=== PATIENT | male | born 2000 | race Caucasian/White ===

== ENCOUNTER 2020-08-01 17:30 | Emergency (ER) | payer OTHER ==
[~2020-08-01] VITALS: Ht 175.3 cm; Wt 75.0 kg
--- NOTE | 2020-08-01 18:09 | NUR ---
BIB BY [facility] FOR [facility]. HX OF DEPRESSION/ANXIETY. HX OF CUTTING. "I'M FEELING SUPER UNSTABLE. I WAS PRATIK TAKE A BUNCH OF MY MOME XANAX AND OXYS THEN DRINK." ALL BELONGING INVENTORIED AND SECURED IN LOCKER ROOM SECURED WITH PSYCHIATRIC PRECAUTIONS UDS OBTAINED UPDATED ON ESTIMATED POC
[2020-08-01 18:17] LABS: BASOPHILS % (AUTO) 1 % (0-1); EOSINOPHILS % (AUTO) 0 % (1-7); LYMPHOCYTES % (AUTO) 22 % (22-44); MEAN CORPUSCULAR HEMOGLOBIN 31.5 pg (27.5-34.5); MEAN CORPUSCULAR HGB CONC 34.1 g/dL (33.2-36.2); MEAN PLATELET VOLUME 8.6 fL (7.4-10.4); MONOCYTES % (AUTO) 8 % (2-9); NEUTROPHILS % (AUTO) 69 % (42-75); PLATELET COUNT 241 x10^3/uL (130-400); RED BLOOD COUNT 5.42 x10^6/uL (4.38-5.82); RED CELL DISTRIBUTION WIDTH 13.3 % (9.4-14.8)
[2020-08-01 18:24] LABS: ALBUMIN 4.5 g/dL (3.4-5.0); ANION GAP 6 mmol/L (5-15); CHLORIDE 109 mmol/L (98-107)
[2020-08-01 18:28] LABS: AMPHETAMINE SCREEN, URINE Negative (Negative); BARBITURATE SCREEN, URINE Negative (Negative); BENZODIAZEPINE SCREEN, URINE Negative (Negative); CANNABINOID SCREEN, URINE Negative (Negative); COCAINE SCREEN, URINE Negative (Negative); METHADONE SCREEN, URINE Negative (Negative); OPIATE SCREEN, URINE Negative (Negative)
[2020-08-01 18:28] LABS: ALANINE AMINOTRANSFERASE 38 U/L (12-78); ALKALINE PHOSPHATASE 94 U/L (45-117); BILIRUBIN,TOTAL 0.5 mg/dL (0.2-1.0); CREATININE 1.03 mg/dL (0.7-1.3); TOTAL PROTEIN 8.2 g/dL (6.4-8.2)
[2020-08-01 18:29] LABS: SALICYLATE LEVEL < 1.7 mg/dL (2.8-20.0)
[2020-08-01] MEDS ORDERED: NICOTINE 7 MG/24 HR PATCH.TD24 TD SCH (19:00)
[2020-08-01] MEDS ORDERED: NICOTINE 7 MG/24 HR PATCH.TD24 ONE ×2 (19:03→19:30)
--- NOTE | 2020-08-01 19:34 | NUR ---
MEDICATED PER EMAR FOR NICOTINE DEPENDENCE UPDATED ON ESTIMATED POC (HOPEFULLY WILL BE TRANSFERRED TO [facility] SHORTLY)
--- NOTE | 2020-08-01 19:51 | NUR ---
REPORT FROMERICAY ASSUMED CARE OF PT AT THIS TIME
--- NOTE | 2020-08-01 19:55 | NUR ---
KEREN RN: Spoke with ABE Peralta. Patient to be eval by [facility].
--- NOTE | 2020-08-01 19:57 | NUR ---
REPORT TO RAFA FISH
[2020-08-01 20:23] VITALS: BP 122/72
--- NOTE | 2020-08-01 20:46 | NUR ---
TP RN: Accessed patient's belongings with patient in order to get the correct insurance info. Contacted Kathryn at [facility] to inform her of the active insurance. Provided crackers and water to patient.
--- NOTE | 2020-08-01 21:49 | NUR ---
YESIKA ([facility]AVA) ACCEPTED
== END 2020-08-01 23:29 ==
LOC: ED 18:00 → UNDOADMIN 23:05 → EDIP 23:05 → ED 23:29
DX: F33.9 Major depressive disorder, recurrent, unspecified (principal); Z20.822 Contact with and (suspected) exposure to COVID-19
CPT/HCPCS: 36415; 80053; 80299; 80307; 80320; 80329; 85025; 87635; G0480

== ENCOUNTER 2020-08-01 22:10 | Inpatient (IN) | payer OTHER ==
[~2020-08-01] VITALS: Ht 165.1 cm; Wt 75.3 kg
[2020-08-01] MEDS ORDERED: DOCUSATE 100 MG CAPSULE PO PRN (23:00)
[2020-08-01] MEDS ORDERED: POLYETHYLENE GLYCOL 17 GM PACKET PO PRN (23:00)
[2020-08-01] MEDS ORDERED: ONDANSETRON ODT 4 MG PO PRN (23:00)
[2020-08-01] MEDS ORDERED: ACETAMINOPHEN 325 MG TABLET PO PRN (23:00)
[2020-08-01] MEDS ORDERED: BISACODYL 10 MG SUPP PR PRN (23:00)
[2020-08-01 23:08] LABS: MICROSCOPIC NOT IND
[2020-08-01 23:32] LABS: FREE T4 (FREE THYROXINE) 1.18 ng/dL (0.76-1.46)
[2020-08-01] MEDS ORDERED: PLEASE ENTER HEIGHT AND WEIGHT MC SCH (23:45)
[2020-08-02] VITALS: BP 145/92
[2020-08-02 01:19] LABS: CHOL/HDL RATIO 2.5; LDL/HDL RATIO 1.3 (0.5-3.0)
[2020-08-02 07:19] VITALS: BP 109/66
[2020-08-02] MEDS: NICOTINE 14MG/24 HR PATCH.TD24 TD SCH (07:57)
[2020-08-02] MEDS: VENLAFAXINE XR 37.5MG CAP.ER.24H PO SCH (15:14)
[2020-08-02 19:45] VITALS: BP 121/76
[2020-08-02] MEDS ORDERED: CARIPRAZINE 1.5 MG CAP PO SCH (21:00)
[2020-08-03 07:31] VITALS: BP 104/61
[2020-08-03] MEDS: NICOTINE 14MG/24 HR PATCH.TD24 TD SCH (08:32)
[2020-08-03] MEDS: VENLAFAXINE XR 37.5MG CAP.ER.24H PO SCH (08:32)
[2020-08-03 19:19] VITALS: BP 104/61
[2020-08-03] MEDS: MELATONIN 3 MG TABLET PO PRN (23:01)
[2020-08-04 07:36] VITALS: BP 100/64
[2020-08-04] MEDS: VENLAFAXINE XR 37.5MG CAP.ER.24H PO SCH (08:32)
[2020-08-04] MEDS: NICOTINE 14MG/24 HR PATCH.TD24 TD SCH (08:37)
[2020-08-04] MEDS: CARIPRAZINE 1.5 MG CAP PO SCH (17:11)
[2020-08-04 19:14] VITALS: BP 131/70
[2020-08-04] MEDS: MELATONIN 3 MG TABLET PO PRN (20:42)
[2020-08-05 07:20] VITALS: BP 103/56
[2020-08-05] MEDS: CARIPRAZINE 1.5 MG CAP PO SCH (08:35)
[2020-08-05] MEDS: VENLAFAXINE XR 37.5MG CAP.ER.24H PO SCH (08:35)
[2020-08-05] MEDS: NICOTINE 14MG/24 HR PATCH.TD24 TD SCH (08:36)
[2020-08-05 19:18] VITALS: BP 122/72
[2020-08-06 07:29] VITALS: BP 116/63
[2020-08-06] MEDS: CARIPRAZINE 1.5 MG CAP PO SCH (09:00)
[2020-08-06] MEDS: VENLAFAXINE XR 37.5MG CAP.ER.24H PO SCH (09:08)
[2020-08-06] MEDS: NICOTINE 14MG/24 HR PATCH.TD24 TD SCH (09:08)
[2020-08-06 19:15] VITALS: BP 128/73
[2020-08-07 07:41] VITALS: BP 113/69
[2020-08-07] MEDS: VENLAFAXINE XR 37.5MG CAP.ER.24H PO SCH (08:39)
[2020-08-07] MEDS: NICOTINE 14MG/24 HR PATCH.TD24 TD SCH (08:40)
[2020-08-07] MEDS: CARIPRAZINE 1.5 MG CAP PO SCH (08:43)
[2020-08-07 19:24] VITALS: BP 130/83
[2020-08-07] MEDS: MELATONIN 3 MG TABLET PO PRN (22:19)
[2020-08-08 07:20] VITALS: BP 112/71
[2020-08-08] MEDS: VENLAFAXINE XR 37.5MG CAP.ER.24H PO SCH (08:18)
[2020-08-08] MEDS: NICOTINE 14MG/24 HR PATCH.TD24 TD SCH (08:18)
[2020-08-08] MEDS: CARIPRAZINE 1.5 MG CAP PO SCH (08:20)
[2020-08-08] MEDS ORDERED: NICO-486 TD (14:49)
[2020-08-08] MEDS ORDERED: VENL37.52 PO (14:49)
[2020-08-08] MEDS ORDERED: CARI1.5C2 PO (14:49)
[2020-08-08] MEDS ORDERED: MELA3TAB31 PO (14:49)
== END 2020-08-08 15:01 | disposition home or self-care (01) | DRG 885 ==
LOC: 3E 23:27
PROVIDERS: ADMIT Psychiatry & Neurology Psychosomatic Medicine; ATTEND Psychiatry & Neurology Psychosomatic Medicine
DX: F33.3 Major depressive disorder, recurrent, severe with psychotic symptoms (principal); R45.851 Suicidal ideations; F16.10 Hallucinogen abuse, uncomplicated; J45.909 Unspecified asthma, uncomplicated; F17.290 Nicotine dependence, other tobacco product, uncomplicated; Z60.2 Problems related to living alone; K59.00 Constipation, unspecified; Z81.8 Family history of other mental and behavioral disorders; Z82.49 Family history of ischemic heart disease and other diseases of the circulatory system; Z91.5 Personal history of self-harm; Z80.42 Family history of malignant neoplasm of prostate; Z80.1 Family history of malignant neoplasm of trachea, bronchus and lung; Z80.0 Family history of malignant neoplasm of digestive organs; Z79.899 Other long term (current) drug therapy
CPT/HCPCS: 36415; 71045; 80061; 81003; 84439; 84443; 93005